=== PATIENT | male | born 1970 | race American Indian/Alaskan Native ===

== ENCOUNTER 2019-02-05 17:39 | Emergency (ER) | payer OTHER ==
[2019-02-05] MEDS ORDERED: TYLENOL PO ONE (17:56)
[2019-02-05] MEDS ORDERED: XYLOCAINE 1% 20 mL INFILTRATI ONE (17:56)
[2019-02-05] MEDS ORDERED: NACL 0.9% IR ONE (17:56)
--- NOTE | 2019-02-05 17:56 | Emergency Department Report ---
Chief Complaint: Wound/Laceration Stated Complaint: LIP INJURY Time Seen by Provider: 02/05/19 17:55 - HPI History of Present Illness: LIP LAC TDAP TODAY SZ DISORDER BLEEDING CONTROLLED ALLERGY TO ASA AND PCN MSE screening note: Focused history and physical exam performed. Due to findings the following was ordered: ED Disposition for MSE Condition: Stable
--- NOTE | 2019-02-05 20:46 | Emergency Department Report ---
- General Chief Complaint: Wound/Laceration Stated Complaint: LIP INJURY Time Seen by Provider: 02/05/19 17:55 Source: patient Mode of arrival: Ambulatory Limitations: No Limitations - History of Present Illness Initial Comments: Pt is a 48 yo male who presents to the ED with c/o a laceration to the right upper lip that occurred 2 hours [employer]. The patient was seen at [facility] given a tdap and advised to be evaluated in the ED. 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 He states he was opening a metal latch on the back of the truck and it swung up and hit him in the mouth. He states initially there was heavy bleeding which has since resolved. He denies any dental problem or LOC. His only PMHx is seizures. - Related Data Allergies Allergy/AdvReac Type Severity Reaction Status Date / Time aspirin Allergy Unknown Verified 02/05/19 18:00 Penicillins Allergy Unknown Verified 02/05/19 18:00 ED Review of Systems ROS: Stated complaint: LIP INJURY Other details as noted in HPI Comment: All other systems reviewed and negative ED Past Medical Hx - Past Medical History Previous Medical History?: Yes Hx Seizures: Yes - Surgical History Past Surgical History?: No - Social History Smoking Status: Current Some Day Smoker ED Physical Exam - General Limitations: No Limitations General appearance: alert, in no apparent distress - Head Head exam: Present: atraumatic, normocephalic - Eye Eye exam: Present: normal appearance - ENT ENT exam: Present: other (1 cm laceration to the right upper lip does barely cross the jeannine border but is superficial and not all the way through the lip, bleeding is controlled, no dental pain, no loose tooth, small abrasion in side the mouth does not need repair, no facial TTP, FROM of the jaw) - Neurological Exam Neurological exam: Present: alert, oriented X3 - Psychiatric Psychiatric exam: Present: normal affect, normal mood - Skin Skin exam: Present: warm, dry ED Course Vital Signs 02/05/19 02/05/19 17:57 21:04 Temperature 98.1 F Pulse Rate 67 71 Respiratory 18 16 Rate Blood Pressure 143/103 Blood Pressure 146/88 [Right] O2 Sat by Pulse 99 100 Oximetry - Laceration /Wound Repair Right Upper Face Wound Location: mouth (right upper lip) Wound Length (cm): 1 Wound's Depth, Shape: superficial Wound Explored: clean Irrigated w/ Saline (ccs): 20 Betadine Prep?: Yes Anesthesia: 1% Lidocaine Volume Anesthetic (ccs): 3 Wound Debrided: minimal Wound Repaired With: sutures Suture Size/Type: 5:0 (ethilon) Number of Sutures: 2 Layer Closure?: No Sterile Dressing Applied?: Yes ED Medical Decision Making - Lab Data Vital Signs 02/05/19 02/05/19 17:57 21:04 Temperature 98.1 F Pulse Rate 67 71 Respiratory 18 16 Rate Blood Pressure 143/103 Blood Pressure 146/88 [Right] O2 Sat by Pulse 99 100 Oximetry - Medical Decision Making Pt is a 48 yo male who presents to the ED with c/o a laceration to the right upper lip that occurred 2 hours [employer]. The patient was seen at [facility] given a tdap and advised to be evaluated in the ED. 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 He states he was opening a metal latch on the back of the truck and it swung up and hit him in the mouth. He states initially there was heavy bleeding which has since resolved. He denies any dental problem or LOC. His only PMHx is seizures. laceration cleaned with betadine and irrigated with saline, placed 2 ethilon sutures. Advised pt that sutures would need to be removed in 5-7 days. Discussed may be completed at primary care or may return to the ED for removal. Advised to follow up with PCP in the next 3-5 days. Discussed to observe for signs of infection. Keep area clean and dry. May wash with antibacterial soap and water. Do not get in pool, hot tub, or bath tub. Return to the ED for any new or worsening symptoms. Critical care attestation.: If time is entered above; I have spent that time in minutes in the direct care of this critically ill patient, excluding procedure time. ED Disposition Clinical Impression: Laceration of lip Qualifiers: Encounter type: initial encounter Qualified Code(s): S01.511A - Laceration without foreign body of lip, initial encounter Disposition: TO HOME OR SELFCARE Is pt being admited?: No Does the pt Need Aspirin: No Condition: Stable Instructions: Suture Care (ED), Laceration (ED) Additional Instructions: Sutures will need to be removed in 5-7 days. May be completed at primary care or may return to the ER for removal. Follow up with PCP in the next 3-5 days. Observe for signs of infection. Keep area clean and dry. May wash with antibacterial soap and water. Do not get in pool, hot tub, or bath tub. Return to the ED for any new or worsening symptoms. Referrals: [facility] [Other] - 3-5 Days Forms: Accompanied Note, Work/School Release Form(ED) Time of Disposition: 20:50 Print Language: ROMANSH
[2019-02-05 21:06] VITALS: BP 146/88
== END 2019-02-05 21:04 | disposition home or self-care (01) ==
LOC: ED 17:39
DX: S01.511A Laceration without foreign body of lip, initial encounter (principal); F17.200 Nicotine dependence, unspecified, uncomplicated; Z88.6 Allergy status to analgesic agent; Z88.0 Allergy status to penicillin; W45.8XXA Other foreign body or object entering through skin, initial encounter; Y93.89 Activity, other specified; Y92.69 Other specified industrial and construction area as the place of occurrence of the external cause; Y99.0 Civilian activity done for income or pay
CPT/HCPCS: 99282; 99283